=== PATIENT | male | born 1945 | race Caucasian/White ===

== ENCOUNTER → 2017-07-20 07:54 | Outpatient (CLI) | payer OTHER, SELFPAY ==
[2017-07-20 09:59] LABS: BUN Creatinine Ratio 27.1 (6-22); Blood Urea Nitrogen 19 mg/dL (9-20); Estimated Glomerular Filt Rate > 60.0 mL/min (>60)
== END ==
PROVIDERS: PCP Family Medicine; Visit Provider Family Medicine
DX: N28.89 Other specified disorders of kidney and ureter (principal)
CPT/HCPCS: 36415; 82565; 84520

== ENCOUNTER → 2017-07-23 12:01 | Outpatient (CLI) | payer OTHER, SELFPAY ==
--- NOTE | 2017-07-23 | DI.CT.S_ITS ---
PROCEDURE: CT ABDOMEN WWO PELVIS W INDICATIONS: 72 year-old male with left retroperitoneal mass on CT colonography. History of testicular cancer 50 years ago. TECHNIQUE: After the administration of oral contrast, 5 mm thick sections acquired from the diaphragms to the iliac crests. After the administration of intravenous contrast, 5 mm thick sections acquired from the diaphragms to the symphysis. 5 mm thick coronal and sagittal reformats were acquired. For radiation dose reduction, the following was used: automated exposure control, adjustment of mA and/or kV according to patient size. COMPARISON: Outside Facility, RG, CT COLONOGRAPHY, 07/05/2017, 9:05. FINDINGS: Image quality: Excellent. ABDOMEN: Lung bases: Lung bases are clear, except for previously reported 4 mm posterior left lung base subpleural nodule on axial image 18, as well as linear right middle and lower lobe scarring. Heart size is normal. There is moderate hiatal hernia. Solid organs: Liver is normal in size, with 1.0 cm heterogeneous enhancing lesion in the inferior right hepatic lobe. Gallbladder wall thickness is normal. Biliary system is non-dilated. Pancreas enhances normally. Spleen is normal in size and enhancement. 3.3 x 3.0 cm soft tissue density nodule is again noted contacting the medial limb of the left adrenal gland, measuring 31 Hounsfield units in noncontrast density and demonstrating mild progressive enhancement without washout. Both kidneys are normal in size. 5 mm nonobstructing left renal stone is present; no hydronephrosis. Bowel and peritoneum: Stomach, small and large bowel loops are normal in caliber. On axial image 18, there is possible localized irregular mucosal thickening at the gastroesophageal junction and gastric fundus. There is sigmoid colon diverticulosis. No free fluid or air. Nodes and vessels: No retroperitoneal or mesenteric adenopathy by size criteria. Aorta and inferior vena are normal in caliber, with moderate aortoiliac atherosclerosis. Miscellaneous: No ventral hernias. PELVIS: Genitourinary: Bladder wall thickness is normal. Prostate gland is normal in size. Miscellaneous: No inguinal hernias or adenopathy. Bones: No suspicious bony lesions. No vertebral body compression fractures. IMPRESSION: 1. 3.3 x 3.0 cm enhancing mass lesion in the left retroperitoneum remains indeterminate, with progressive enhancement pattern not typical for adenoma. As such, malignancy remains in the differential. Further management options would include CT guided biopsy from a posterior approach, or PET/CT scan. 2. Heterogeneous 1.0 cm inferior right hepatic lobe enhancing lesion, possibly an atypical hemangioma. Liver protocol pre- and post contrast abdominal MRI may be considered to attempt further characterization (and would also enable simultaneous imaging of the left retroperitoneal lesion). 3. 5 mm nonobstructing left renal stone. 4. Apparent localized wall thickening of the gastric fundus and gastroesophageal junction may reflect underlying malignancy. Consider further evaluation with air-contrast upper GI series. 5. Sigmoid colon diverticulosis. Dictated by: Randy Mcgowan M.D. on 07/25/2017 at 16:16 Approved by: Randy Mcgowan M.D. on 07/25/2017 at 16:42
== END ==
PROVIDERS: PCP Family Medicine; Visit Provider Surgery
DX: R92.8 Other abnormal and inconclusive findings on diagnostic imaging of breast (principal); Z85.47 Personal history of malignant neoplasm of testis; N20.0 Calculus of kidney; K31.89 Other diseases of stomach and duodenum
CPT/HCPCS: 74178; Q9967

== ENCOUNTER → 2017-08-01 16:06 | Outpatient (CLI) | payer OTHER, SELFPAY ==
[2017-08-01 16:34] LABS: Add Manual Diff / Slide Review NO; Basophils Percent Auto 0.8 % (0-2); Eosinophils Percent Auto 2.6 % (2-4); Hematocrit 41.4 % (41-53); Hemoglobin 14.1 g/dL (13.5-17.5); Lymphocytes Percent Auto 37.1 % (25-40); Mean Corpuscular Hemoglobin 30.5 PG (26-34); Mean Corpuscular Volume 89.7 fL (80-100); Monocytes Percent Auto 11.3 % (3-14); Neutrophils Absolute Auto 1900 /uL (3000-5900); Neutrophils Percent Auto 48.2 % (50-75); Platelet Count 265 X10^3/uL (150-400); Red Blood Cell Count 4.61 X10^6/uL (4.5-5.9); Red Cell Distribution Width 13.9 % (11.6-14.8); White Blood Cell Count 3.9 X10^3/uL (4.5-11.0)
[2017-08-01 16:45] LABS: Prothrombin Time 10.7 SECONDS (10.1-12.7)
== END ==
PROVIDERS: PCP Family Medicine; Visit Provider Family Medicine
DX: I10 Essential (primary) hypertension (principal); E27.9 Disorder of adrenal gland, unspecified
CPT/HCPCS: 36415; 85025; 85610

== ENCOUNTER → 2017-08-03 08:35 | Outpatient (CLI) | payer OTHER, SELFPAY ==
[2017-08-07 14:52] LABS: Total Volume 2500 mL; Urine, Metanephrine 101 mcg/24 h (90-315); Urine, Normetanephrine 328 mcg/24 h (122-676)
[2017-08-11 12:06] LABS: Normetanephrine, Free 137 pg/mL (< OR = 148)
== END ==
PROVIDERS: PCP Family Medicine; Visit Provider Family Medicine
DX: I10 Essential (primary) hypertension (principal); E27.9 Disorder of adrenal gland, unspecified
CPT/HCPCS: 83835

== ENCOUNTER 2017-08-23 07:55 | Day surgery (SDC) | payer OTHER, SELFPAY ==
[2017-08-23] VITALS (12 sets, daily range): BP systolic 126–150; BP diastolic 76–95; PULSE 70–97; RESP 14–16; TEMP 36.2–36.9; O2SAT 11–98
--- NOTE | 2017-08-23 | PATH_ITS ---
[facility] Accession Number: [id number] . 01 Material submitted: . L ADRENAL REGION MASS . 01 Clinical history: . A: NO SYMPTOMS OR OTHER MALIGNANCY KNOWN . 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 See comment. MRV/08/29/2017 . 01 Comment: The morphology and immunophenotype favors schwannoma with degenerative changes; however, the sample is limited and may not represent the lesion as a whole. More tissue is required for a definite diagnosis and clinical correlation is recommended. As part of ongoing manufacturing quality technician, this case is also reviewed by Dr. Dolores Garland, who concurs with the given interpretation. . An attempt was made to reach on 08/30/2017 at 1230 hoursby but was not successful. Additional attempts will be made. . 01 Electronically signed: . Leonor Stover MD, Pathologist NPI- [id number] . 01 Gross description: . One specimen is received in formalin, labeled Josh Jag, not otherwise designated, and consists of multiple white-velazquez needle core fragments, 0.5 x 0.5 x 0.1 cm in aggregate. The specimen is submitted in toto in cassette A1. (ROM:[id number]) /FRR . 01 Microscopic: . Microscopic examination shows a spindle cell proliferation in vaguely fascicular architecture. The cells have elongated, hyperchromatic and spindled nuclei with eosinophilic and fibrillary cytoplasm and indistinct cell borders. Scattered nuclei show some pleomorphism. Mitosis and necrosis are not identified. Interspersed are irregular and dilated thin-walled vessels. Immunostains are performed with controls staining appropriately. The lesional cells stain as follows. . DANIELLE: Negative. S100: Strongly and diffusely positive. HMB45: Rare isolate cell with equivocal positivity (may represent inherent pigment staining). Smooth muscle actin: Negative. Desmin: Negative. Melan-A: Rare isolate cell with equivocal positivity (may represent inherent pigment staining). CD34: Negative. DOG1: Negative. Ki-67: Low proliferative index. . * This test was developed and its performance characteristics determined by [facility]. It has not been cleared or approved by the U.S. Food and Drug Administration. The FDA has determined that such clearance or approval is not necessary. This test is used for clinical purposes. It should not be regarded as investigational or for research. . 01 Pathologist provided ICD-10: D35.02 . 01 CPT . 034254, J00242, L55781 Performed at: 01 [facility] [address] [place] [address], [place], [place] [id number] MD Jag Blackburn MD Phone: [phone]
--- NOTE | 2017-08-23 08:40 | SUR.HOLD ---
pt states he ate yesterday at 7 pm, took his BP pill (amlodipine) yesterday morning.
--- NOTE | 2017-08-23 10:15 | SUR.PHASEII ---
pt returned form D.I., pt is awakebut drowsy, denies any pain or discomfort, bandaid is clean and dry.
--- NOTE | 2017-08-23 10:31 | DI.CT.S_ITS ---
PROCEDURE: CT BIOPSY ABDOMEN PERCUTANEOUS Sedation analgesia for 30 minutes. INDICATIONS: LEFT RETROPERITONEAL MASS TECHNIQUE: The indications, alternatives, benefits, risks, and possible complications of the procedure were communicated to the patient. Informed written consent from the patient was obtained and placed in the chart. Continuous EKG and hemodynamic monitoring was started by trained personnel. The patient was brought to the CT suite and jig worker spiral CT imaging was performed with localization grid. The appropriate site for percutaneous access to the biopsy target was marked, was prepped and draped sterilely, and was infused with local anaesthesia. Under CT guidance, a core biopsy trocar and needle set was advanced to the biopsy target, and specimen(s) were obtained. The trocar and needle were then removed, and the patient was sent for post-procedure monitoring. COMPARISON: [facility], CT, CT ABDOMEN WWO PELVIS W, 07/23/2017, 13:03. FINDINGS: Biopsy site: Ovoid mass lesion medial to the left kidney, located at the inferior aspect of the left adrenal gland. Needle: 20 gauge biopsy needle with introducer trocar. Number of passes: 5 Medications: 1% lidocaine for local anaesthesia. IV Fentanyl and Versed for conscious sedation for 30 minutes (see nursing record). Complications: None. IMPRESSION: Successful CT-guided biopsy of inferior left adrenal gland area, ovoid previously identified mass lesion. Dictated by: Roque Hatch M.D. on 08/23/2017 at 13:20 Approved by: Roque Hatch M.D. on 08/23/2017 at 13:25
--- NOTE | 2017-08-23 11:56 | SUR.PHASEII ---
pt up to BR to void, gait steady, no c/o pain or discomfort, vss, bandaid remains dry and intact, pt tolerating po fluids.
--- NOTE | 2017-08-23 12:56 | PC.NURSE ---
Orthostatic B/P supine 139/87 90 degree sitting up 162/101 and standing 159/98 all other vital signs 97.5, 99% RA, 74 HR, 15 resp.
== END 2017-08-23 13:02 ==
LOC: OR 07:56
PROVIDERS: PCP Family Medicine; Visit Provider Family Medicine
PROC: BR2CZZZ Computerized Tomography (CT Scan) of Pelvis (ICD-10-PCS; CPT 77012; principal; 2017-08-23 09:00)
DX: D35.02 Benign neoplasm of left adrenal gland (principal); R53.83 Other fatigue
CPT/HCPCS: 49180; 77012; Q9967

== ENCOUNTER → 2018-05-20 14:52 | Outpatient (CLI) | payer OTHER, SELFPAY | PROVIDERS: PCP Family Medicine; Visit Provider Nurse Practitioner | DX: L02.11 Cutaneous abscess of neck (principal) | CPT/HCPCS: 87070; 87075; 87186; 87205 ==

== ENCOUNTER → 2018-05-27 15:06 | Outpatient (CLI) | payer OTHER, SELFPAY ==
--- NOTE | 2018-05-27 15:08 | DI.US.S_ITS ---
PROCEDURE: US SCROTUM INDICATIONS: scrotal mass left, hx testicular cancer remotely TECHNIQUE: Real-time scanning was performed of the scrotum and testicles, with image documentation. Color and pulse Doppler interrogation was performed of both testicles. COMPARISON: None. FINDINGS: Right: Surgically absent. Left: Testicle is normal in size at 5.5 x 2.5 x 3.9 cm, and homogeneous in echotexture. Tubular ectasia of the rete testis. Epididymis is normal in overall size and morphology. No hydrocele or varicoceles. Overlying scrotal skin is normal in thickness. 2.5 x 1.6 x 1.5 cm, complex, predominantly solid appearing avascular mass present corresponding to the palpable abnormality within the left hemiscrotal wall. Doppler: Color and pulse Doppler demonstrate normal intrinsic blood flow within the left testicle. IMPRESSION: 1. Normal appearance of the left testicle with mild tubular ectasia of the rete testis. 2. Complex, predominately solid mass within the left scrotal wall corresponding to the palpable abnormality. Although findings may be related to epidermoid inclusion cyst, findings are nonspecific and both benign and malignant etiology cannot be excluded. Recommend urologic consultation. Dictated by: Omar MANTILLA Interpreted: Joes David Box MD on 05/27/2018 at 15:54 Approved by: Jose David Box M.D. on 05/27/2018 at 17:02
== END ==
PROVIDERS: PCP Family Medicine; Visit Provider Nurse Practitioner
DX: N50.9 Disorder of male genital organs, unspecified (principal); Z85.47 Personal history of malignant neoplasm of testis
CPT/HCPCS: 76870

== ENCOUNTER → 2018-06-05 16:01 | Outpatient (CLI) | payer OTHER, SELFPAY | PROVIDERS: PCP Family Medicine; Visit Provider Family Medicine | DX: N49.2 Inflammatory disorders of scrotum (principal) | CPT/HCPCS: 87070; 87075; 87077; 87186; 87205 ==

== ENCOUNTER → 2019-02-25 12:52 | Outpatient (CLI) | payer OTHER, SELFPAY ==
--- NOTE | 2019-02-25 12:53 | DI.RAD.S_ITS ---
PROCEDURE: XR LUMBAR SPINE 2-3V INDICATIONS: acute low mid back pain TECHNIQUE: 3 views of the lumbar spine were acquired. COMPARISON: None. FINDINGS: Bones: 5 [id number] vertebrae are present. There is normal bony alignment. No vertebral body compression fractures. No suspicious bony lesions. There is mild degenerative disc disease at L1-L2, L2-L3, L3-L4 and L5-L5. Mild facet arthropathy at L4-L5 and L5-S1. Soft tissues: Overlying bowel gas pattern is normal. Aortic calcifications consistent with atherosclerosis. IMPRESSION: 1. No acute osseous abnormalities. 2. Mild degenerative disease and facet disease. Dictated by: Michaela Rios M.D. on 02/25/2019 at 13:50 Approved by: Michaela Rios M.D. on 02/25/2019 at 13:54
== END ==
PROVIDERS: PCP Family Medicine; Visit Provider Family Medicine
DX: M54.5 Low back pain (principal); M51.36 Other intervertebral disc degeneration, lumbar region; M47.816 Spondylosis without myelopathy or radiculopathy, lumbar region; M47.817 Spondylosis without myelopathy or radiculopathy, lumbosacral region
CPT/HCPCS: 72100

== ENCOUNTER → 2019-03-19 09:16 | Outpatient (CLI) | payer OTHER, SELFPAY ==
[2019-03-19 10:02] LABS: Add Manual Diff / Slide Review NO; Basophils Absolute Auto 0 /uL (0-100); Eosinophils Absolute Auto 100 /uL (0-450); Eosinophils Percent Auto 3.6 % (2-4); Hematocrit 40.4 % (41-53); Hemoglobin 13.7 g/dL (13.5-17.5); Lymphocytes Absolute Auto 1100 /uL (1100-4500); Lymphocytes Percent Auto 36.5 % (25-40); Mean Corpuscular HGB Conc 33.9 % (30-36); Mean Corpuscular Hemoglobin 30.5 PG (26-34); Mean Corpuscular Volume 89.8 fL (80-100); Monocytes Absolute Auto 300 /uL (0-900); Neutrophils Absolute Auto 1400 /uL (1500-7000); Neutrophils Percent Auto 47.9 % (50-75); Platelet Count 278 X10^3/uL (150-400); Red Cell Distribution Width 13.3 % (11.6-14.8)
[2019-03-19 10:17] LABS: Alanine Aminotransferase 26 IU/L (<50); Albumin 4.3 g/dL (3.5-5.0); Albumin Globulin Ratio 1.5 (1.0-2.8); Alkaline Phosphatase 76 U/L (38-126); Aspartate Aminotransferase 39 IU/L (17-59); Bilirubin Total 0.5 mg/dL (0.2-1.3); Blood Urea Nitrogen 20 mg/dL (9-20); Calcium 9.4 mg/dL (8.4-10.2); Carbon Dioxide 28 mmol/L (22-32); Chloride 104 mmol/L (98-107); Cholesterol 240 mg/dL (140-199); Estimated Glomerular Filt Rate > 60.0 mL/min (>60); Globulin 2.8 g/dL (1.7-4.1); Glucose 99 mg/dL (80-110); HDL Cholesterol 65 mg/dL (40-60); HEMOLYSIS < 15 (0-50); LDL Cholesterol Calculated 155 mg/dL (<100); Potassium 3.9 mmol/L (3.4-5.1); Sodium 140 mmol/L (137-145); Total Protein 7.1 g/dL (6.3-8.2); Triglycerides 98 mg/dL (35-150)
== END ==
PROVIDERS: PCP Family Medicine; Visit Provider Family Medicine
DX: E78.5 Hyperlipidemia, unspecified (principal); I10 Essential (primary) hypertension
CPT/HCPCS: 36415; 80053; 80061; 85025

== ENCOUNTER → 2019-03-27 15:19 | Outpatient (CLI) | payer OTHER, SELFPAY ==
--- NOTE | 2019-03-27 15:21 | DI.RAD.S_ITS ---
PROCEDURE: XR SHOULDER RT MIN 2V INDICATIONS: right shoulder pain TECHNIQUE: 3 views of the shoulder were acquired. COMPARISON: [facility], , SHOULDER 1 VIEW LEFT, 11/27/2016, 10:39. FINDINGS: Bones: No fractures or dislocations. No suspicious bony lesions. Visualized ribs appear intact. Severe right AC and glenohumeral joint degeneration, with bulky marginal osteophyte formation and subchondral sclerosis. Soft tissues: No suspicious soft tissue calcifications. IMPRESSION: Severe right shoulder joint degeneration Dictated by: Jose David Box M.D. on 03/27/2019 at 16:05 Approved by: Jose David Box M.D. on 03/27/2019 at 16:07
[2019-03-31 21:44] LABS: Fecal Immunochemical Test NOT DETECTED (NOT DETECTED)
== END ==
PROVIDERS: PCP Family Medicine; Referring Provider Family Medicine; Visit Provider Family Medicine
DX: Z12.11 Encounter for screening for malignant neoplasm of colon (principal); M25.511 Pain in right shoulder; M19.011 Primary osteoarthritis, right shoulder
CPT/HCPCS: 73030; 82274

== ENCOUNTER → 2019-04-09 17:30 | Outpatient (CLI) | payer OTHER, SELFPAY ==
--- NOTE | 2019-04-09 17:34 | DI.MRI.S_ITS ---
PROCEDURE: MR LUMBAR SPINE WO CON INDICATIONS: lumbar back pain TECHNIQUE: Noncontrast sagittal T1 spin echo and T2 fast echo, sagittal STIR, axial T1 and T2 fast spin echo through the lumbar spine. In cases with scoliosis, additional coronal T2 fast spin echo may be performed. COMPARISON: [facility], CR, XR LUMBAR SPINE 2-3V, 02/25/2019, 12:54. FINDINGS: Image quality: Excellent. Alignment and Curvature: There is normal bony alignment. Bone Marrow: Marrow is of normal overall signal. No acute vertebral body compression fractures. Spinal Cord: Conus medullaris terminates at the T12-L1 level. Visualized cord demonstrates normal signal and size. Paraspinous Soft Tissues: No paravertebral masses. T12-L1: No canal stenosis or foraminal stenosis. L1-L2: Bilateral facet hypertrophy. No canal stenosis or foraminal stenosis. L2-L3: Mild disc bulge. Facet ligament hypertrophy. No canal stenosis or foraminal stenosis. L3: Behind L3 shows a shallow disc extrusion which likely emanates from the L3-4 level. At the superior portion of the disc extrusion, disc material fills the right lateral recess obliterating the right L3 nerve root in the right lateral recess. More inferiorly behind L3, the disc extrusion is in the midline, indenting on the anterior aspect of the thecal sac. L3-L4: A shallow disc extrusion has migrated superiorly from the disc space. At the level of the disc, there is disc material which is in the right foramen and right lateral recess and posteriorly displaces the right L4 nerve root in the right lateral recess and has some mass effect on the right L3 nerve root in the foramen. There is mild to moderate canal stenosis of the central canal. There is facet ligament hypertrophy. The left foramen is intact. L4-L5: There is a left paracentral disc protrusion which impinges on the left L5 nerve root in the left lateral recess. There is facet hypertrophy. There is moderate central canal stenosis. There is mild right foraminal narrowing. There is moderate left foraminal narrowing with flattening deformity on the left L4 nerve root. L5-S1: Disc bulge. Facet ligament hypertrophy. No canal stenosis or foraminal stenosis. IMPRESSION: 1. There is a disc extrusion which has migrated superiorly behind L3 from the L3-4 level. 2. At the level of the superior aspect of L3, the disc extrusion material fills the right lateral recess, impinging on the right L3 nerve root. At the midportion of the L3 vertebra, there is midline disc material which indents the ventral aspect of the thecal sac. 3. At L3-L4, as part of the disc extrusion, there is extruded disc material in the right foramen, impinging on the exiting right L3 nerve root. There is disc material in the right lateral recess which posteriorly displaces the right L4 nerve root in the right lateral recess. There is ibjx-qv-wzefzbsd central canal stenosis. 4. At L4-L5, there is a left paracentral disc protrusion which impinges on the left L5 nerve root in the left lateral recess. There is moderate central canal stenosis. Dictated by: Luca Gonsalez M.D. on 04/10/2019 at 8:41 Approved by: Luca Gonsalez M.D. on 04/10/2019 at 8:52
== END ==
PROVIDERS: PCP Family Medicine; Referring Provider Family Medicine; Visit Provider Family Medicine
DX: M54.5 Low back pain (principal); M51.16 Intervertebral disc disorders with radiculopathy, lumbar region; M48.061 Spinal stenosis, lumbar region without neurogenic claudication
CPT/HCPCS: 72148

== ENCOUNTER → 2020-06-03 13:12 | Outpatient (CLI) | payer OTHER, SELFPAY ==
--- NOTE | 2020-06-03 | DI.CT.S_ITS ---
PROCEDURE: CT UE RT WO CON INDICATIONS: Primary osteoarthritis, right shoulder TECHNIQUE: Noncontrast 1-1.5 mm thick sections acquired from the acromioclavicular joint to the inferior scapula, with coronal and sagittal reformatting. COMPARISON: None. FINDINGS: Image quality: Excellent. Bones: Moderate to severe acromioclavicular joint osteoarthritis is seen with significant joint space narrowing, subchondral sclerosis and cyst formation and inferior marginal osteophyte formation. Moderate to severe glenohumeral joint osteoarthritic changes also seen with joint space narrowing, subchondral sclerosis and cyst formation and prominent inferior marginal osteophyte formation. No fracture or dislocation. No suspicious intraosseous lesion. Visualized right upper to mid ribs are intact. Soft tissues: There is no significant joint effusion. No definite intra-articular loose body. There is possible peripherally calcified loose body within subcoracoid bursa and measures 1.4 x 2.2 x 1.1 cm in size. No gross full-thickness rotator cuff tendon rupture. No significant rotator cuff muscle atrophy is seen. IMPRESSION: 1. Moderate to severe acromioclavicular joint and glenohumeral joint osteoarthritis. No fracture or dislocation. No suspicious intraosseous lesion. 2. Suggestion of loose body within subcoracoid bursa measures 2.2 x 1.4 x 1.1 cm in size. 3. No significant joint effusion. No definite intra-articular loose body. No full-thickness rotator cuff tendon rupture. Dictated by: Ruben Perez M.D. on 06/03/2020 at 14:34 Approved by: Ruben Perez M.D. on 06/03/2020 at 14:38
== END ==
PROVIDERS: PCP Family Medicine; Referring Provider Orthopaedic Surgery; Visit Provider Orthopaedic Surgery
DX: M19.011 Primary osteoarthritis, right shoulder (principal)
CPT/HCPCS: 73200

== ENCOUNTER → 2020-06-15 07:56 | Outpatient (CLI) | payer OTHER, SELFPAY ==
[2020-06-15 08:27] LABS: Add Manual Diff / Slide Review NO; Basophils Absolute Auto 0 /uL (0-100); Basophils Percent Auto 0.8 % (0-2); Eosinophils Absolute Auto 200 /uL (0-450); Hematocrit 39.3 % (41-53); Hemoglobin 13.2 g/dL (13.5-17.5); Lymphocytes Absolute Auto 1400 /uL (1100-4500); Lymphocytes Percent Auto 43.3 % (25-40); Mean Corpuscular HGB Conc 33.7 % (30-36); Mean Corpuscular Hemoglobin 30.6 PG (26-34); Mean Corpuscular Volume 90.9 fL (80-100); Monocytes Absolute Auto 400 /uL (0-900); Monocytes Percent Auto 12.4 % (3-14); Neutrophils Absolute Auto 1300 /uL (1500-7000); Neutrophils Percent Auto 38.5 % (50-75); Platelet Count 258 X10^3/uL (150-400); Red Blood Cell Count 4.33 X10^6/uL (4.5-5.9); Red Cell Distribution Width 13.1 % (11.6-14.8); White Blood Cell Count 3.3 X10^3/uL (4.5-11.0)
[2020-06-15 08:39] LABS: Alanine Aminotransferase 21 IU/L (<50); Albumin 4.1 g/dL (3.5-5.0); Albumin Globulin Ratio 1.5 (1.0-2.8); Alkaline Phosphatase 88 U/L (38-126); Aspartate Aminotransferase 28 IU/L (17-59); BUN Creatinine Ratio 29.1 (6-22); Bilirubin Total 0.4 mg/dL (0.2-1.3); Blood Urea Nitrogen 23 mg/dL (9-20); Calcium 9.8 mg/dL (8.4-10.2); Carbon Dioxide 26 mmol/L (22-32); Chloride 105 mmol/L (98-107); Cholesterol 241 mg/dL (140-199); Estimated Glomerular Filt Rate > 60.0 mL/min (>60); Globulin 2.7 g/dL (1.7-4.1); Glucose 97 mg/dL (80-110); HDL Cholesterol 78 mg/dL (40-60); HEMOLYSIS < 15 (0-50); LDL Cholesterol Calculated 144 mg/dL (<100); Potassium 4.6 mmol/L (3.4-5.1); Sodium 139 mmol/L (137-145); Total Protein 6.8 g/dL (6.3-8.2); Triglycerides 94 mg/dL (35-150)
[2020-06-15 09:08] LABS: Prostate Specific Antigen Scrn 1.68 ng/mL (0.1-4.0)
[2020-06-15 09:49] LABS: TSH w/ Reflex to FT4 2.58 uIU/mL (0.47-4.68)
== END ==
PROVIDERS: PCP Family Medicine; Referring Provider Orthopaedic Surgery; Visit Provider Orthopaedic Surgery
DX: Z01.818 Encounter for other preprocedural examination (principal); E78.5 Hyperlipidemia, unspecified; Z12.5 Encounter for screening for malignant neoplasm of prostate; I10 Essential (primary) hypertension; Z01.812 Encounter for preprocedural laboratory examination
CPT/HCPCS: 36415; 80053; 80061; 84443; 85025; 93005; G0103

== ENCOUNTER → 2020-06-26 08:58 | Outpatient (CLI) | payer OTHER, SELFPAY ==
[2020-06-26 12:10] LABS: COVID19 -Nasal RAPID Negative (Negative)
== END ==
PROVIDERS: PCP Family Medicine; Referring Provider Student in an Organized Health Care Education/Training Program; Visit Provider Student in an Organized Health Care Education/Training Program
DX: Z01.812 Encounter for preprocedural laboratory examination (principal); Z20.822 Contact with and (suspected) exposure to COVID-19
CPT/HCPCS: 87635

== ENCOUNTER 2020-06-28 06:18 | Day surgery (SDC) | payer OTHER, SELFPAY ==
[2020-06-21 12:33] VITALS: BMI 28.3
[2020-06-28] VITALS (13 sets, daily range): BP systolic 125–153; BP diastolic 70–87; PULSE 60–87; RESP 13–18; TEMP 35.8–36.6; O2SAT 92–98; BMI 28.3; BMI 29.0
--- NOTE | 2020-06-28 06:00 | DI.RAD.S_ITS ---
PROCEDURE: XR SHOULDER RT 1V INDICATIONS: post operative right shoulder TECHNIQUE: Single views of the shoulder were acquired. COMPARISON: [facility], , XR SHOULDER RT MIN 2V, 03/27/2019, 15:16. FINDINGS: Bones: Expected alignment of right shoulder arthroplasty. Severe AC joint degeneration. No acute fracture is seen. Hardware appears intact. Soft tissues: Postoperative soft tissue changes. IMPRESSION: Expected alignment right shoulder arthroplasty. Dictated by: Jose David Box M.D. on 06/28/2020 at 11:55 Approved by: Jose David Box M.D. on 06/28/2020 at 11:56
[2020-06-28] MEDS: CELECOXIB 200 MG CAPSULE PO (06:44)
[2020-06-28] MEDS: PREGABALIN 75 MG CAPSULE PO (06:44)
[2020-06-28] MEDS: ACETAMINOPHEN 325 MG TABLET 975 MG PO (06:44)
[2020-06-28] MEDS: LACTATED RINGERS 1,000 ML 42 ML IV (07:13)
--- NOTE | 2020-06-28 07:35 | PM.PREOP ---
Pre-operative Note COVID-19 COVID-19 status: Negative Result date/Date tested (Pos, Neg/Pending): 06/26/20 Interval Note History & Physical reviewed/Exam performed by Physician: Yes Changes to H&P: No
--- NOTE | 2020-06-28 07:36 | P.OP_ITS ---
Operative Date/Time/Diagnoses Date of procedure: 06/28/20 Time of procedure: 10:24 Pre-op diagnosis: Right shoulder osteoarthritis Post-op diagnosis: same Procedure & Clinicians Procedure: Right total shoulder replacement Same procedure as scheduled: Yes Indications: The patient has had progressively worsening right shoulder pain with radiographic changes consistent with arthritis. Non-operative management has failed and the patient has requested total shoulder replacement. The risks, benefits and alternatives to surgery were discussed with the patient prior to proceeding. Risks discussed included, but were not limited to, failure to relieve pain, stiffness, infection, nerve damage, deep venous thrombosis, pulmonary embolism, stroke, coma, heart attack, permanent paralysis and , as well as the potential need for eventual revision of the prosthetic. Surgeon: Murali Gruber Radio Equipment Installer: Nakul Pulliam Click Yes if Unassisted: No Anesthesia Type: General, Peripheral nerve block and Local Operative Notes Findings: Significant glenohumeral osteoarthritis with a large inferior osteophyte on the humerus Closure Type: primary Specimen(s): none sent Prosthetic devices, grafts, tissues, transplants, or devices: Implants used in this procedure were manufactured by the [employer] and included an Altivate size 2 humeral stem and neck for a stemless canal sparing prosthetic with a 58 x 20 mm humeral head and a 50 mm all polyethylene pegged glenoid. In addition 4 Arthrex SutureTak anchors were used in a speed bridge configuration. Applied: implant(s) Estimated Blood Loss (mL): 150 Blood products transfused: none Procedure in detail: The patient was seen in the pre-operative area, where the patient identified the right shoulder as the operative site and this was marked with my initials. The patient received pre-operative antibiotics, underwent an interscalene block, and was taken to the operating room and placed on the ope rative table in the supine position. After satisfactory anesthesia, a full ?time out? was performed. The patient was repositioned in the ?beach chair? position using a dedicated positioner. All pressure points were well padded, and the knees were slightly bent to prevent tension on the sciatic nerves. The right arm was prepared from the fingers to the base of the neck with ChloroPrep in the usual fashion and draped through sterile drapes. An approximately 12 cm incision was created, starting at the clavicle above the coracoid process and extended towards the deltoid insertion. The deltopectoral interval was used to access the shoulder. The cephalic vein was taken laterally. A self retaining retractor was placed. The upper centimeter of the pectoralis major tendon was released. The ?three sisters? were identified and cauterized. The axillary nerve was palpated and protected throughout the case. The biceps was released from its groove and tenodesed over the top of the pectoralis major tendon. The subscapularis was released from the lesser tuberosity with a subscapularis peel and tagged for later repair. The shoulder was dislocated and a cutting guide was used for the proximal humeral osteotomy in 30 degrees of retroversion. A humeral head was used to center the guide pin in the humeral metaphysis. The collar Reamer was then used followed by the central drill. The size 2 broach was placed. A proximal humeral protector was then placed. We then removed the self-retaining retractor and placed retractors to access the glenoid. The subscapularis was released with a ?360 degree release? with care being taken to protect the axillary nerve with the inferior portion of this procedure. The remnant of labrum and biceps stump were removed. The appropriate size reamer was chosen with the glenoid sizer, and the guide pin placed. The glenoid was appropriately reamed. The guide for the peripheral holes was used and the center hole enlarged. The trial glenoid was placed with good stability. We then cemented the final implant into place after irrigating the peg holes and drying them with thrombin-soaked Gelfoam. We returned our attention to the humerus, a trial humeral head was applied and a trial reduction performed. Stability was checked with 50% posterior translation with spontaneous reduction, 45? external rotation at the side with the subscapularis in the repaired position, and 70? internal rotation in the ?scare agua caliente position?. This was felt to be satisfactory and the appropriate implants were opened. The humeral prosthetic was impacted into the humerus. The humeral head was applied when the device was still slightly proud and impacted to both seat the head and fully seat the stem. The joint was relocated one final time. The joint was irrigated and the subscapularis repaired using a double row speed bridge technique. The top of the subscapularis was closed to the leading edge of the supraspinatus with a figure of 8 #2 TiCron to close the rotator interval. The deltopectoral interval was closed with interrupted 0 Vicryl. The subcutaneous layer was closed with 3-0 Vicryl, and the skin with a running 3-0 V-Lock suture and Dermabond. An Aquacel Ag dressing was applied, the patient?s arm was placed in a sling, and the patient was taken to recovery having tolerated the procedure well. Complications: none Post-operative Condition: stable Disposition: PACU Plan for aftercare: The patient will be maintained on a standard total shoulder replacement protocol with passive range of motion limited to 90 degrees forward flexion, 0 degrees external rotation at the side, 0 degrees abduction and internal rotation to the body. The patient will receive aspirin and sequential compression devices for DVT prophylaxis. The patient will be discharged home when safe for the home environment, likely tomorrow.
--- NOTE | 2020-06-28 07:57 | SUR.PREOP ---
Nerve block completed with Dr Wilson starting at 0750. Pt leaving room with OR nurse Zara. Pt was on continuous tele monitoring. VSS during procedure.
[2020-06-28] MEDS: TRANEXAMIC ACID 1,000 MG VIAL 1000 MG INJ ×2 (08:10→09:55)
[2020-06-28] MEDS: CEFAZOLIN 2 GM/100 ML FROZ.PIGGY IV (08:10)
--- NOTE | 2020-06-28 08:28 | SUR.OPER ---
Beach chair with Erna/Erich shoulder positioner. Lower body on padded OR bed. Torso secured with tape over blankets. Head in foam padded head cradle, secured with straps. Non-operative arm secured <90 degrees abduction. Pillow under knees. Safety belt at thigh. Cloth tape over blanket over lower legs. Gel pad under heels.
[2020-06-28] MEDS: BUPIVACAINE 0.25% W/ EPI 30 ML VIAL INJ (08:36)
[2020-06-28] MEDS: THROMBIN (RECOMBINANT) 5,000 UNIT VIAL 5000 UNIT TOP (08:36)
--- NOTE | 2020-06-28 09:53 | PM.PROC.1 ---
Procedures Date/Time Date of procedure: 06/28/20 Time of procedure: 07:40 General Procedure description: Ultrasound guided interscalene brachial plexus nerve block for post op pain control after right total shoulder arthroplasty by Dr. Gruber. Risk and benefits of procedure discussed with patient. ASA monitoring applied to patient. O2 given via nasal cannula. 2 mg Versed and 50 mcg fentanyl given for procedural sedation. Skin site was prepped with chlorhexidine and allowed to fully dry. Sterile gloves, mask, hat and probe cover were used to maintain sterility. 2% lidocaine and 30ga needle was used to make a small skin wheal at needle insertion site. Under ultrasound guidance, a 21ga 50mm Pajunk needle was directed into the interscalene groove (middle/anterior scalenes) near the brachial plexus. Patient reported no parasthesias. After negative aspiration, 20 mL 0.5% ropivicaine was injected around brachial plexus. Patient tolerated procedure well.
[2020-06-28] MEDS: OXYCODONE/ACETAMINOPHEN 5/325 TABLET 1 TAB PO (10:25)
--- NOTE | 2020-06-28 10:51 | PC.NURSE ---
Day shift: Pt on unit from PACU at approx 1050. He is A&Ox4. C/o rt shoulder pain 04/28. Was given percocet per MAR by [employer] just prior to coming up to AC unit. VS WNL. RA 97%. CMS RUE ok. Good cap refill and digits are warm to the touch. Aquacel is CDI. Ice pack on rt shoulder and Pt is tolerating. SCD's in place. IV fluids per APR. Denies any nausea.
[2020-06-28] MEDS: LACTATED RINGERS 1,000 ML 100 ML IV (11:02)
[2020-06-28] MEDS: IBUPROFEN 400 MG TABLET PO (12:13)
[2020-06-28] MEDS: OXYCODONE IR 5 MG TABLET PO (12:13)
--- NOTE | 2020-06-28 13:38 | PT.IIE ---
Current Diagnoses Primary osteoarthritis, right shoulder (06/28/20) Surgery Performed Operation Date: 06/28/20 07:45 Actual Procedures p Total Shoulder Arthroplasty(Right) - Murali Gruber MD Surgical History (Last Updated 06/21/20 @ 13:06 by Magy Brown, RN) History of arthroplasty of left shoulder (11/27/16) History of colonoscopy History of colonoscopy with polypectomy (01/2020) Medical History (Last Updated 06/21/20 @ 13:06 by Magy Brown, RN) Beckman's palsy Depression Foreign body in foot History of benign schwannoma (09/2017) History of Mohs micrographic surgery for skin cancer (2019) Testicular cancer Physical Therapy Inpatient Evaluation/Re-Eval M1 PT/OT-IP Prior Functional Status Start: 06/28/20 13:02 Freq: NEEDED Status: Active Protocol: Document 06/28/20 13:38 AW (Rec: 06/28/20 13:47 AW [id number]) Medical Review Prior Functional Status Medical History Reviewed Yes Communication WNL Mobility and Gait Independent without AD Activities of Daily Living and IADL's Independent Prior Functional Level (Other details) Pt had L TSA in 2017 and reports good outcomes. Social History Household Members spouse,children Living Arrangements House Number of Floors (Floors) 3 or More Floors Number of Stairs To Enter/Railing? level entry through kitchen. 11 steps up to bedroom level - part with R rail and part with L rail. Home Environment Standard Height Toilet,Walk in Shower Additional Social History Comment Pt lives in [place] with his , Katelyn, and his adult son. Spouse will be available and able to assist at discharge M2 PT-IP Current Condition Start: 06/28/20 13:02 Freq: NEEDED Status: Active Protocol: Document 06/28/20 13:38 AW (Rec: 06/28/20 13:47 AW [id number]) Physical Therapy Current Condition Current Condition Evaluation Date 06/28/20 Treatment Diagnosis R TSA; decreased indep with ADL's Onset Date 06/28/20 Precautions Shoulder Precautions Sling,PROM,Internal Rotation to Body,No External Rotation, No Abduction,Forward Flexion to 90 degrees,Pendulums Brace soft sling for mobility Weight Bearing Status Allowed Weight Bearing Amount (enter % NWB RUE or #) (%) M3 PT-IP Subjective Start: 06/28/20 13:02 Freq: NEEDED Status: Active Protocol: Document 06/28/20 13:38 AW (Rec: 06/28/20 13:47 AW [id number]) Subjective Physical Therapy Visit Type Type Initial Evaluation Visit Start Time 13:14 Visit Stop Time 13:38 Total Visit Minutes 24 Physical Therapy Visit Comments Patient Comments Pt is willing to participate with PT Patient Goals Return home today Therapy Pain Assessment Pain When Pain Assessed At Rest Pain Present Pain Present Pain Reported Location Right Shoulder Intensity 4 Scale Used Numeric (0 - 10) Pain Management Techniques Apply Cold,Timing of Activity with Medications M4 PT-IP Mobility and Gait Start: 06/28/20 13:02 Freq: NEEDED Status: Active Protocol: Document 06/28/20 13:38 AW (Rec: 06/28/20 13:47 AW [id number]) PT-Bed Mobility Assessment Supine to Sit Supine to Sit Independent Scooting Scooting to Edge of Bed Independent PT-Transfer Assessment Sit to and From Stand Sit to and from Stand Independent,Use of Upper Extremities Equipment Transfer Assistive Device None,Gait Belt Orthotic/Prosthetic Devices or Brace: No Transfers Transfer Destination Chair Transfer Technique Stand Step Pivot Transfer Ability Level of Assist Standby Assistance Comments Mobility Comments Pt was sitting up in bed as PT arrived. He transitioned to sitting EOB independently. BP was 136/81. Pt stood independently and walked to the sink for education on fitting and donning/doffing the sling. He then ambulated around the unit a total of 180 feet independent. He transferred to the bedside chair without assist. Gait Assessment Gait Gait Assistance Required: Independent Distance (Feet) 180 Able to Maintain Weight Bearing Status Yes During Gait Assistive Devices Assistive Device None,Gait Belt Gait Deviations General Gait Pattern Within Normal Limits Comments Gait Comments Steady gait, good safety awareness. Stair Climbing Assessment Evaluation Level of Assist On Stairs Independent Technique/Endurance Stair Climbing Direction Ascend and Descend Stair Climbing Technique Step Over Step Number of Steps Climbed 3 Query Text: Stair Climbing Set # Repetitions (reps) 2 PT-Balance Assessment Sitting Balance and Reactions Static Sitting Balance Ability Normal Dynamic Sitting Balance Ability Normal Standing Balance and Reactions Static Standing Balance Ability Normal Dynamic Standing Balance Ability Normal Device Used none Balance Tests Single Limb Standing WNL Functional Reach Test WNL M5 PT-IP Objective Assessments Start: 06/28/20 13:02 Freq: NEEDED Status: Active Protocol: Document 06/28/20 13:38 AW (Rec: 06/28/20 13:47 AW [id number]) Orientation Orientation/Cognition Level of Alertness Alert Orientation Name,Date,Day of Week,Place, Situation Language Function Ability No Deficits Noted Safety Awareness Understands Safety Issues Memory Description No Deficits Noted Gross Range of Motion Upper Extremity ROM Assessment Right Impaired Lower Extremity ROM Assessment Within Functional Limits Strength Upper Extremity Strength Assessment Right Impaired Lower Extremity Strength Assessment Within Functional Limits Sensation Assessment Sensation Gross Sensation Right UE Impaired Light Touch Impaired Proprioception (Position) Impaired Sensation Description Numbness Muscle Tone Muscle Tone WNL Yes M6 PT-IP Treatment Start: 06/28/20 13:02 Freq: NEEDED Status: Active Protocol: Document 06/28/20 13:38 AW (Rec: 06/28/20 13:47 [id number]) Physical Therapy Treatment Exercises Exercises Elbow Flexion/Extension,Wrist ROM,Hand ROM Education Education Provided Precautions,Weight Bearing Status,Post-Op Packet,Safety Brace Education Donning,Pittman,Patient, Caregiver Other Treatments Other Treatment Performed Spent extra time reviewing ADL management and self-care routines as well as practice with donning and doffing the sling which pt was able to return demonstrate without additional cues. M7 PT-IP Assessment and Plan Start: 06/28/20 13:02 Freq: NEEDED Status: Active Protocol: Document 06/28/20 13:38 AW (Rec: 06/28/20 13:47 [id number]) PT Summary Assessment and Plan Potential Rehabilitation Potential Excellent Status of Condition at Evaluation Stable Summary Impairments Pain,ROM,Strength,Sensation Assessment Summary Jag is a 75 yo man seen for PT evaluation on POD0 following R TSA. He had L TSA in 2017. PLOF: Pt is independent in all regards. CLOF: Pt requires no more than SBA for all mobility. He has sound balance reactions and good awareness of all precautions. He is able to don and doff the sling and to fit it properly. He will have assist at home. Pt is safe for discharge once medically stale Goals Bed Mobility Goal Independent Transfer Goal Independent Gait Goal Independent Gait Distance 300 Other Goals - up/down 11 steps with unilateral rail Days to Meet Goals 1 Frequency of Treatment Frequency Of Treatment Twice a Day Treatment Plan Physical Therapy Treatment Plan Bed Mobility Training,Transfer Training,Gait Training, Therapeutic Exercise,Balance Retraining,Post Op Education, Discharge Planning,Hot or Cold Pack Precautions Shoulder Precautions Sling,PROM,Internal Rotation to Body,No External Rotation, No Abduction,Forward Flexion to 90 degrees,Pendulums Brace soft sling for all mobility Recommendations To Nursing Amount of Assist Needed Standby Assistance Discharge Recommendations PT Discharge Recommendations Home with Assistance, Outpatient PT Transportation Needs at Discharge Private Vehicle
--- NOTE | 2020-06-28 14:47 | PC.NURSE ---
Day shift: Paperwork signed and all questions answered. Yoni remains CDI. scripts sent to Pt's pharmacy electronic by . [facility] xiang NELSON. Pt ate w/ no nausea. Pain controlled per APR. Pt happy to be going home today. Pt's spouse here to take him home in car. Taken to that car in by SILVINA Owusu.
== END 2020-06-28 14:49 | disposition home or self-care (01) ==
LOC: OR 06:19 → AC 06:20
PROVIDERS: PCP Family Medicine; Referring Provider Family Medicine; Visit Provider Orthopaedic Surgery
PROC: 0RQJ0ZZ Repair Right Shoulder Joint, Open Approach (ICD-10-PCS; CPT 23472; principal; 2020-06-28 07:45)
DX: M19.011 Primary osteoarthritis, right shoulder (principal); M25.711 Osteophyte, right shoulder; I10 Essential (primary) hypertension; F32.9 Major depressive disorder, single episode, unspecified
CPT/HCPCS: 23472; 64450; 73030; 94762; 97161; 97535; C1776; J0690; J1100; J2250; J2405; J2704; J3010

== ENCOUNTER → 2021-09-29 07:34 | Outpatient (CLI) | payer OTHER, SELFPAY ==
[2020-06-28 11:28] VITALS: BMI 29.0
[2021-09-29 08:52] LABS: Add Manual Diff / Slide Review NO; Basophils Absolute Auto 0 /uL (0-100); Basophils Percent Auto 1.1 % (0-2); Eosinophils Absolute Auto 200 /uL (0-450); Eosinophils Percent Auto 7.5 % (2-4); Hematocrit 39.6 % (41-53); Hemoglobin 13.4 g/dL (13.5-17.5); Lymphocytes Absolute Auto 1100 /uL (1100-4500); Lymphocytes Percent Auto 37.2 % (25-40); Mean Corpuscular HGB Conc 33.9 % (30-36); Mean Corpuscular Hemoglobin 30.7 PG (26-34); Mean Corpuscular Volume 90.6 fL (80-100); Monocytes Absolute Auto 300 /uL (0-900); Monocytes Percent Auto 9.9 % (3-14); Neutrophils Absolute Auto 1300 /uL (1500-7000); Neutrophils Percent Auto 44.3 % (50-75); Platelet Count 254 X10^3/uL (150-400); Red Blood Cell Count 4.37 X10^6/uL (4.5-5.9); Red Cell Distribution Width 13.2 % (11.6-14.8); White Blood Cell Count 2.9 X10^3/uL (4.5-11.0)
[2021-09-29 10:47] LABS: TSH w/ Reflex to FT4 3.14 uIU/mL (0.47-4.68)
[2021-09-29 15:17] LABS: Alanine Aminotransferase 18 IU/L (<50); Albumin 4.1 g/dL (3.5-5.0); Albumin Globulin Ratio 1.6 (1.0-2.8); Alkaline Phosphatase 83 U/L (38-126); Aspartate Aminotransferase 29 IU/L (17-59); BUN Creatinine Ratio 15.6 (6-22); Bilirubin Total 0.3 mg/dL (0.2-1.3); Blood Urea Nitrogen 12 mg/dL (9-20); Calcium 9.2 mg/dL (8.4-10.2); Carbon Dioxide 29 mmol/L (22-32); Chloride 107 mmol/L (98-107); Cholesterol 260 mg/dL (140-199); Estimated Glomerular Filt Rate > 60 mL/min (>60); Globulin 2.5 g/dL (1.7-4.1); Glucose 81 mg/dL (80-110); HDL Cholesterol 82 mg/dL (40-60); HEMOLYSIS < 15 (0-50); LDL Cholesterol Calculated 152 mg/dL (<100); Potassium 4.8 mmol/L (3.4-5.1); Sodium 142 mmol/L (137-145); Total Protein 6.6 g/dL (6.3-8.2); Triglycerides 132 mg/dL (35-150)
[2021-09-29 15:50] LABS: Prostate Specific Antigen Scrn 1.63 ng/mL (0.1-4.0)
== END ==
PROVIDERS: PCP Family Medicine; Referring Provider Family Medicine; Visit Provider Family Medicine
DX: E03.9 Hypothyroidism, unspecified (principal); I10 Essential (primary) hypertension; Z12.5 Encounter for screening for malignant neoplasm of prostate; E78.2 Mixed hyperlipidemia
CPT/HCPCS: 36415; 80053; 80061; 84443; 85025; G0103

== ENCOUNTER → 2021-10-31 10:29 | Outpatient (CLI) | payer OTHER, SELFPAY ==
[2020-06-28 11:28] VITALS: BMI 29.0
[2021-10-31 14:51] LABS: Testosterone 363 ng/dL (71.8-623)
== END ==
PROVIDERS: PCP Family Medicine; Referring Provider Family Medicine; Visit Provider Family Medicine
DX: N52.9 Male erectile dysfunction, unspecified (principal); R53.83 Other fatigue
CPT/HCPCS: 36415; 84403

== ENCOUNTER → 2022-11-15 08:23 | Outpatient (CLI) | payer OTHER, SELFPAY ==
[2021-12-16 09:31] VITALS: BMI 29.0
[2022-11-15 08:50] LABS: Add Manual Diff / Slide Review NO; Basophils Absolute Auto 0 /uL (0-100); Basophils Percent Auto 1.1 % (0-2); Eosinophils Absolute Auto 100 /uL (0-450); Eosinophils Percent Auto 3.6 % (2-4); Hematocrit 38.5 % (41-53); Hemoglobin 13.2 g/dL (13.5-17.5); Lymphocytes Absolute Auto 1200 /uL (1100-4500); Mean Corpuscular HGB Conc 34.3 % (30-36); Mean Corpuscular Hemoglobin 31.2 PG (26-34); Mean Corpuscular Volume 90.9 fL (80-100); Monocytes Absolute Auto 400 /uL (0-900); Monocytes Percent Auto 11.4 % (3-14); Neutrophils Absolute Auto 1300 /uL (1500-7000); Neutrophils Percent Auto 43.9 % (50-75); Platelet Count 249 X10^3/uL (150-400); Red Blood Cell Count 4.24 X10^6/uL (4.5-5.9); Red Cell Distribution Width 13.3 % (11.6-14.8); White Blood Cell Count 3.1 X10^3/uL (4.5-11.0)
[2022-11-15 09:07] LABS: Alanine Aminotransferase 25 IU/L (<50); Albumin 4.1 g/dL (3.5-5.0); Albumin Globulin Ratio 1.5 (1.0-2.8); Alkaline Phosphatase 73 U/L (38-126); Aspartate Aminotransferase 30 IU/L (17-59); BUN Creatinine Ratio 21.9 (6-22); Bilirubin Total 0.5 mg/dL (0.2-1.3); Blood Urea Nitrogen 16 mg/dL (9-20); Calcium 9.4 mg/dL (8.4-10.2); Carbon Dioxide 28 mmol/L (22-32); Chloride 105 mmol/L (98-107); Cholesterol 248 mg/dL (140-199); Estimated Glomerular Filt Rate > 60 mL/min (>60); Globulin 2.7 g/dL (1.7-4.1); Glucose 93 mg/dL (80-110); HDL Cholesterol 73 mg/dL (40-60); HEMOLYSIS < 15 (0-50); LDL Cholesterol Calculated 146 mg/dL (<100); Potassium 4.5 mmol/L (3.4-5.1); Sodium 140 mmol/L (137-145); Total Protein 6.8 g/dL (6.3-8.2); Triglycerides 146 mg/dL (35-150)
[2022-11-15 09:36] LABS: TSH w/ Reflex to FT4 2.71 uIU/mL (0.47-4.68)
== END ==
PROVIDERS: PCP Family Medicine; Referring Provider Family Medicine; Visit Provider Family Medicine
DX: E78.2 Mixed hyperlipidemia (principal); I10 Essential (primary) hypertension
CPT/HCPCS: 36415; 80053; 80061; 84443; 85025

== ENCOUNTER → 2023-02-07 12:14 | Outpatient (CLI) | payer OTHER, SELFPAY ==
[2021-12-16 09:31] VITALS: BMI 29.0
--- NOTE | 2023-02-07 12:15 | DI.RAD.S_ITS ---
PROCEDURE: XR ELBOW RT MIN 3V INDICATIONS: Right elbow pain TECHNIQUE: 3 views of the elbow were acquired. COMPARISON: None. FINDINGS: Bones: No fractures or dislocations. No suspicious bony lesions. There is prominent osteophyte in the lateral epicondyle, suggesting epicondylitis. Soft tissues: Question small elbow joint effusion. No suspicious soft tissue calcifications. IMPRESSION: 1. Lateral epicondylitis. 2. Suspect small elbow effusion. 3. If clinical symptoms persist, consider MRI. Dictated by: Michaela Rios M.D. on 02/07/2023 at 21:51 Approved by: Michaela Rios M.D. on 02/07/2023 at 21:53
== END ==
PROVIDERS: PCP Family Medicine; Referring Provider Nurse Practitioner Family; Visit Provider Nurse Practitioner Family
DX: M77.11 Lateral epicondylitis, right elbow (principal); M25.521 Pain in right elbow
CPT/HCPCS: 73080

== ENCOUNTER → 2023-11-16 08:44 | Outpatient (CLI) | payer OTHER, SELFPAY ==
[2021-12-16 09:31] VITALS: BMI 29.0
[2023-11-16 09:55] LABS: Add Manual Diff / Slide Review NO; Basophils Absolute Auto 0 /uL (0-100); Basophils Percent Auto 1.1 % (0-2); Eosinophils Absolute Auto 200 /uL (0-450); Eosinophils Percent Auto 6.4 % (2-4); Hematocrit 41.2 % (41-53); Hemoglobin 13.9 g/dL (13.5-17.5); Lymphocytes Absolute Auto 900 /uL (1100-4500); Lymphocytes Percent Auto 28.7 % (25-40); Mean Corpuscular HGB Conc 33.7 % (30-36); Mean Corpuscular Hemoglobin 31.4 PG (26-34); Mean Corpuscular Volume 93.2 fL (80-100); Monocytes Absolute Auto 300 /uL (0-900); Monocytes Percent Auto 9.6 % (3-14); Neutrophils Absolute Auto 1700 /uL (1500-7000); Neutrophils Percent Auto 54.2 % (50-75); Platelet Count 248 X10^3/uL (150-400); Red Blood Cell Count 4.42 X10^6/uL (4.5-5.9); Red Cell Distribution Width 13.7 % (11.6-14.8); White Blood Cell Count 3.1 X10^3/uL (4.5-11.0)
[2023-11-16 10:12] LABS: Alanine Aminotransferase 22 IU/L (<50); Albumin 4.1 g/dL (3.5-5.0); Albumin Globulin Ratio 1.6 (1.0-2.8); Alkaline Phosphatase 87 U/L (38-126); Aspartate Aminotransferase 35 IU/L (17-59); BUN Creatinine Ratio 21.1 (6-22); Bilirubin Total 0.6 mg/dL (0.2-1.3); Blood Urea Nitrogen 15 mg/dL (9-20); Calcium 9.6 mg/dL (8.4-10.2); Carbon Dioxide 26 mmol/L (22-32); Chloride 107 mmol/L (98-107); Cholesterol 254 mg/dL (140-199); Estimated Glomerular Filt Rate > 60 mL/min (>60); Globulin 2.6 g/dL (1.7-4.1); Glucose 102 mg/dL (80-110); HDL Cholesterol 97 mg/dL (40-60); HEMOLYSIS < 15 (0-50); LDL Cholesterol Calculated 140 mg/dL (<100); Potassium 4.5 mmol/L (3.4-5.1); Sodium 139 mmol/L (137-145); Total Protein 6.7 g/dL (6.3-8.2); Triglycerides 83 mg/dL (35-150)
[2023-11-16 10:33] LABS: Creatinine Urine Random 103.27 mg/dL
[2023-11-16 10:38] LABS: Microalbumin Urine Random < 0.6 mg/dL (0-1.6)
[2023-11-16 10:41] LABS: Prostate Specific Antigen Scrn 1.21 ng/mL (0.1-4.0)
[2023-11-16 10:42] LABS: TSH w/ Reflex to FT4 1.95 uIU/mL (0.47-4.68)
== END ==
PROVIDERS: PCP Family Medicine; Referring Provider Physician Assistant; Visit Provider Physician Assistant
DX: I10 Essential (primary) hypertension (principal); Z12.5 Encounter for screening for malignant neoplasm of prostate; E78.5 Hyperlipidemia, unspecified
CPT/HCPCS: 36415; 80053; 80061; 82043; 82570; 84443; 85025; G0103

== ENCOUNTER → 2023-11-19 13:50 | Outpatient (CLI) | payer OTHER, SELFPAY ==
[2021-12-16 09:31] VITALS: BMI 29.0
--- NOTE | 2023-11-19 13:51 | DI.RAD.S_ITS ---
PROCEDURE: XR HIP W PEL IF DONE SANDY MIN 4V INDICATIONS: low mark and hip pain TECHNIQUE: 2 view(s) of the hip acquired. COMPARISON: None. FINDINGS: Bones: CAM configuration of both femoral head neck junctions may predispose to femoral acetabular impingement and superior lateral labral tears. SI and hip joints: Normal in width and alignment without arthritic change Soft tissues: No soft tissue swelling, calcification or mass. IMPRESSION: CAM configuration of both femoral head neck junctions Dictated by: Christiano Houston M.D. on 11/20/2023 at 10:03 Approved by: Christiano Houston M.D. on 11/20/2023 at 10:04
== END ==
PROVIDERS: PCP Family Medicine; Referring Provider Family Medicine; Visit Provider Family Medicine
DX: M54.50 Low back pain, unspecified (principal); M25.559 Pain in unspecified hip
CPT/HCPCS: 73522

== ENCOUNTER → 2024-01-23 08:05 | Outpatient (CLI) | payer OTHER, SELFPAY ==
[2021-12-16 09:31] VITALS: BMI 29.0
--- NOTE | 2024-01-23 08:06 | DI.ECHO.S_ITS ---
[facility]---------+ [facility] : : [id number] : [place] : : [id number] : : Phone: [phone] Echocardiogram Report + + :Name: AXEL EDWARDS I Study Date: 01/23/2024 Height: 68 in : :[facility] ReadingLocation: Weight: 173 lb : : Gender: Male BSA: 1.9 m2 : :: 1945 Age: 79 yrs BP: 150/88 mmHg: :Reason For Study: SYSTOLIC HEART MURMUR : :Ordering Physician: NICOLE, : :RONNY Performed By: Danay Mccloud : :Referring: RONNY RIVERA : + + Interpretation Summary 1) Normal left ventricular thickness, size, wall motion, and systolic function (EF 55-60%). 2) Normal right ventricular size and function. 3) Aortic valve is calcifiction. There is no aortic valve stenosis. There is mild aortic regurgitation. 4) No prior Echo available for comparison. Procedure: A two-dimensional transthoracic echocardiogram with color flow and Doppler was performed. The study quality was technically adequate. There is no prior echocardiogram noted for this patient. The patient was in sinus rhythm with heart rates between 75-89 bpm during the exam. Left Ventricle: The left ventricle is normal in size and wall thickness. Proximal septal thickening is noted. The ejection fraction is estimated to be 55-60%. Left ventricular systolic function appears normal without focal wall motion abnormalities. Right Ventricle: The right ventricle is normal in size and function. Atria: The left atrial size is normal. Right atrial size is normal. There is no Doppler evidence for an interatrial shunt. Mitral Valve: There is a flat closure plane of the the mitral valve leaflets. There is no mitral valve stenosis. There is no mitral regurgitation noted. Aortic Valve: There is discrete nodular thickening of the non- coronary cusp. There is mild aortic valve sclerosis. There is no aortic valve stenosis. There is mild aortic regurgitation. Tricuspid Valve: The tricuspid valve is normal in structure and function. There is trace tricuspid regurgitation. The right ventricular systolic pressure is estimated to be at least 22 mmHg based on an estimated right atrial pressure of 3 mm Hg. Pulmonic Valve: The pulmonic valve is not well seen, but is grossly normal. There is trace pulmonic regurgitation. Great Vessels: The aortic root is normal size. The dimensions of the ascending aorta are normal. The IVC is of normal diameter and collapses greater than 50% with a sniff. This suggests a low right atrial pressure of 3 mm Hg. Pericardium/ Pleura There is no pericardial effusion. There is no pleural effusion. MMode/2D Measurements & Calculations LVIDd: 5.2 cm LVOT diam: 2.3 cm LVIDs: 3.5 cm Ao root diam: 3.3 cm FS: 32.0 % asc Aorta Diam: 3.4 cm IVSd: 1.1 cm Ao Arch Diam (Prox Trans): 3.1 cm LVPWd: 0.91 cm LV mccann. diameter/BSA (cm/m^2): 2.7 LV sys. diameter/BSA (cm/m^2): 1.8 LA A2 area: 19.6 cm2 RA long axis: 5.1 cm LA A4 area: 19.6 cm2 RA area: 18.2 cm2 LA length (vol): 5.1 cm RA vol: 55.9 ml LA vol: 63.4 ml RA : 29.1 ml/m2 LA vol index: 33.0 ml/m2 IVC diam: 1.4 cm RVD1 (basal): 3.6 cm RVD2 (mid): 3.2 cm TAPSE: 2.3 cm Doppler Measurements & Calculations Ao V2 max: 147.1 cm/sec LVOT Max Dhaval: 90.9 cm/sec Ao V2 mean: 105.7 cm/sec LV V1 max P.3 mmHg Ao max P.7 mmHg LV V1 VTI: 19.6 cm Ao mean P.8 mmHg MAGGIE(I,D): 2.5 cm2 Ao V2 VTI: 34.0 cm MAGGIE(V,D): 2.7 cm2 sev ratio: 0.58 MAGGIE indexed to BSA (cm^2/m^2): 1.3 AI P1/2t: 529.1 msec AI dec slope: 235.6 cm/sec2 MV E max dhaval: 78.0 cm/sec TR max dhaval: 219.3 cm/sec MV A max dhaval: 63.2 cm/sec TR max P.2 mmHg MV E/A: 1.2 PA V2 max: 104.2 cm/sec Med Peak E' Dhaval: 7.5 cm/sec PA V2 mean: 68.3 cm/sec E/E' med: 10.4 PA mean P.1 mmHg Lat Peak E' Dhaval: 6.2 cm/sec PA pr(Accel): 29.3 mmHg E/E' lat: 12.5 E/e' average: 11.5 MV dec time: 0.18 sec MVA(VTI): 3.8 cm2 MV V2 mean: 58.8 cm/sec SV(LVOT): 84.6 ml MV mean P.6 mmHg MV V2 VTI: 22.3 cm Reading Physician:12:28 PM
== END ==
PROVIDERS: PCP Family Medicine; Referring Provider Family Medicine; Visit Provider Family Medicine
DX: I35.1 Nonrheumatic aortic (valve) insufficiency (principal); R01.1 Cardiac murmur, unspecified
CPT/HCPCS: 93306

== ENCOUNTER → 2024-08-07 11:16 | Outpatient (CLI) | payer OTHER, SELFPAY ==
[2021-12-16 09:31] VITALS: BMI 29.0
--- NOTE | 2024-08-07 11:18 | DI.MRI.S_ITS ---
PROCEDURE: MR LUMBAR SPINE WO CON INDICATIONS: LUMBAR RADICULI TECHNIQUE: Noncontrast sagittal T1 spin echo and T2 fast echo, sagittal STIR, and T2 fast spin echo through the lumbar spine. In cases with scoliosis, additional coronal T2 fast spin echo may be performed. COMPARISON: [facility], CR, XR LUMBAR SPINE 2-3V, 02/25/2019, 12:54. [facility], MR, MR LUMBAR SPINE WO CON, 04/09/2019, 17:46. FINDINGS: Image quality: Excellent. Alignment and Curvature: There is normal bony alignment. Bone Marrow: The bone marrow is diffusely heterogeneous, yet without a focal suspicious lesion seen. The bone marrow appears similar to 2020. No acute vertebral body compression fractures. Spinal Cord: Conus medullaris terminates at the L1 level. Visualized cord demonstrates normal signal and size. Paraspinous Soft Tissues: No paravertebral masses. T12-L1: Normal appearance. L1-L2: Mild loss of disc height is seen. Loss of disc signal is seen. Mild generalized disc bulge is seen. There is a superimposed central disc protrusion. Mild to moderate facet hypertrophy is seen. There is moderate right-sided and mild left-sided neural foraminal narrowing. Mild to moderate central canal narrowing is seen. These imaging findings have progressed compared to the prior study. L2-L3: Mild loss of disc height is seen. Loss of disc signal is seen. Moderate generalized disc bulge is seen. There is a superimposed central disc protrusion. Moderate facet joint hypertrophy is seen. There is moderate left-sided and minimal right-sided neural foraminal narrowing. Moderate central canal narrowing is seen. These imaging findings have progressed compared to the prior study. L3-L4: Moderate loss of disc height is seen. Loss of disc signal is seen. Reactive marrow endplate changes are seen which are hypointense on T1-weighted imaging and hyperintense on T2 weighted imaging, which is most consistent with edema (Modic type I changes). Moderate generalized disc bulge is seen, which is eccentric to the right. There was a previously seen significant disc extrusion, yet now with a small remnant central/right disc protrusion. Mild to moderate facet hypertrophy is seen. There is moderate right-sided and mild left-sided neural foraminal narrowing. Mild to moderate central canal narrowing is seen. The disc extrusion is clearly improved compared to the prior, yet with interval progression of a right-sided neural foraminal narrowing and central canal narrowing compared to 2020. The endplate edema is also new compared to the prior examination. L4-L5: Moderate loss of disc height is seen. Loss of disc signal is seen. Moderate generalized disc bulge is seen. There is a superimposed central disc protrusion. There is a focal annular fissure seen posteriorly. Mild facet joint hypertrophy is seen. There is moderate right-sided and moderate to severe left-sided neural foraminal narrowing. There is a degree of compression seen upon the exiting left L4 nerve root. No significant central canal narrowing is seen. There was previously seen central disc protrusion, which is no longer seen. L5-S1: The disc height is well-preserved. Loss of disc signal is seen at this level. Moderate generalized disc bulge is seen. Mild facet joint hypertrophy is seen. Moderate bilateral neural foraminal narrowing is seen. Mild central canal narrowing is seen. When comparison is made with the prior images, these findings are similar. IMPRESSION: Since 2020, the L3-L4 disc extrusion and the L4-L5 disc protrusion have largely resolved. Elsewhere, there is overall progression of degenerative change compared to 2020. Dictated by: Torin Dias M.D. on 08/08/2024 at 17:41 Approved by: Torin Dias M.D. on 08/08/2024 at 17:48
== END ==
LOC: MRI 11:17
PROVIDERS: PCP Family Medicine; Referring Provider Family Medicine; Visit Provider Family Medicine
DX: M51.26 Other intervertebral disc displacement, lumbar region (principal); M47.816 Spondylosis without myelopathy or radiculopathy, lumbar region; M47.817 Spondylosis without myelopathy or radiculopathy, lumbosacral region
CPT/HCPCS: 72148

== ENCOUNTER → 2024-11-17 10:08 | Outpatient (CLI) | payer OTHER, SELFPAY ==
[2021-12-16 09:31] VITALS: BMI 29.0
[2024-11-17 10:32] LABS: Add Manual Diff / Slide Review NO; Hematocrit 37.3 % (41-53); Hemoglobin 12.6 g/dL (13.5-17.5); Lymphocytes Absolute Auto 1000 /uL (1100-4500); Mean Corpuscular HGB Conc 33.8 % (30-36); Mean Corpuscular Hemoglobin 31.3 PG (26-34); Mean Corpuscular Volume 92.7 fL (80-100); Platelet Count 236 X10^3/uL (150-400)
[2024-11-17 10:57] LABS: Alanine Aminotransferase 15 IU/L (<50); Albumin 4.1 g/dL (3.5-5.0); Albumin Globulin Ratio 1.7 (1.0-2.8); Alkaline Phosphatase 66 U/L (38-126); Blood Urea Nitrogen 15 mg/dL (9-20); Calcium 9.1 mg/dL (8.4-10.2); Carbon Dioxide 24 mmol/L (22-32); Chloride 109 mmol/L (98-107); Estimated Glomerular Filt Rate > 60 mL/min (>60); Globulin 2.4 g/dL (1.7-4.1); Glucose 81 mg/dL (70-99); HEMOLYSIS < 15 (0-50); Potassium 4.6 mmol/L (3.4-5.1); Sodium 140 mmol/L (137-145); Total Protein 6.5 g/dL (6.3-8.2)
[2024-11-17 11:24] LABS: TSH w/ Reflex to FT4 1.96 uIU/mL (0.47-4.68)
[2024-11-17 11:26] LABS: Prostate Specific Antigen 1.74 ng/mL (0.10-4.00)
== END ==
PROVIDERS: PCP Family Medicine; Referring Provider Family Medicine; Visit Provider Family Medicine
DX: I10 Essential (primary) hypertension (principal); R97.20 Elevated prostate specific antigen [PSA]; E78.2 Mixed hyperlipidemia; M51.26 Other intervertebral disc displacement, lumbar region
CPT/HCPCS: 80053; 84153; 84443; 85025